=== PATIENT | female | born 1955 | race Caucasian/White ===

== ENCOUNTER 2023-03-16 09:04 | Emergency (ER) | payer MEDICARE, OTHER ==
[~2023-03-16] VITALS: Ht 165.1 cm; Wt 70.0 kg
[~2023-03-16 09:04] MED LIST: BAYER ASPIRIN E81 MG PO; MULTI VIT PO; VITAMIN B-121000 MCG PO; ZITHROMAX500 MG PO
[2023-03-16 09:24] VITALS: BP 156/83
[2023-03-16 09:30] VITALS: BP 143/90
[2023-03-16 09:45] VITALS: BP 144/91
[2023-03-16] MEDS ORDERED: CLINDAMYCIN300 M1 PO (09:59)
[2023-03-16 10:00] VITALS: BP 144/82
[2023-03-16 10:10] VITALS: BP 144/82
== END 2023-03-16 10:12 | disposition home or self-care (01) ==
LOC: ED 09:04
DX: J02.9 Acute pharyngitis, unspecified (principal)

== ENCOUNTER 2024-03-10 08:29 | Day surgery (SDC) | payer MEDICARE, OTHER ==
[~2024-03-10] VITALS: Ht 162.6 cm; Wt 70.3 kg
[~2024-03-10 08:29] MED LIST changes: +ALPRAZOLAM0.5 MG PO; +CLINDAMYCIN300 M1 PO; +OMEPRAZOLE DR40 MG PO
[2024-03-10] MEDS ORDERED: LACTATED RINGER'S 1,000 ML IV ONE (08:47)
[2024-03-10] MEDS ORDERED: FAMOTIDINE 10MG/ML 2ML SDV IV ONE (08:47)
[2024-03-10 10:55] VITALS: BP 151/91
[2024-03-10] MEDS ORDERED: LIDOCAINE HCL 2% 2ML SDV IV ONE (13:11)
[2024-03-10] MEDS ORDERED: GLYCOPYRROLATE 0.2 MG/ML IV ONE (13:11)
[2024-03-10] MEDS ORDERED: PROPOFOL 200 MG/20 ML VIAL IV ONE (13:11)
== END 2024-03-10 11:16 | disposition home or self-care (01) ==
LOC: ENDO 08:29 → ORM 12:15 → ENDO 12:15
PROVIDERS: ATTEND Surgery
PROC: 0DJD8ZZ Inspection of Lower Intestinal Tract, Via Natural or Artificial Opening Endoscopic (ICD-10-PCS; principal; 2024-03-10)
PROC: 0DB48ZX Excision of Esophagogastric Junction, Via Natural or Artificial Opening Endoscopic, Diagnostic (ICD-10-PCS; 2024-03-10)
PROC: 0DB78ZX Excision of Stomach, Pylorus, Via Natural or Artificial Opening Endoscopic, Diagnostic (ICD-10-PCS; 2024-03-10)
PROC: 0DB58ZX Excision of Esophagus, Via Natural or Artificial Opening Endoscopic, Diagnostic (ICD-10-PCS; 2024-03-10)
DX: Z12.11 Encounter for screening for malignant neoplasm of colon (principal); K57.30 Diverticulosis of large intestine without perforation or abscess without bleeding; K64.8 Other hemorrhoids; R05.3 Chronic cough; K44.9 Diaphragmatic hernia without obstruction or gangrene; K31.89 Other diseases of stomach and duodenum; Z86.0100 Personal history of colon polyps, unspecified; Z80.0 Family history of malignant neoplasm of digestive organs
CPT/HCPCS: 43239; G0105; J1596